=== PATIENT | female | born 1940 | race Caucasian/White ===

== ENCOUNTER → 2016-11-17 | Outpatient (CLI) | payer OTHER ==
--- NOTE | 2016-11-17 08:48 | MA ---
Screening Digital Mammogram With Tomosynthesis Clinical Indications: Routine screening. Technique: Standard digital cephalocaudal and tomosynthesis mediolateral oblique projections are obt ained. The digital images were processed by the [employer] computer aided detection system. Comparison: September 2014, July 2012 and September 2010 Breast density: B; There are scattered fibroglandular densities. There is atherosclerotic vascular ca lcification. Findings: CAD was reviewed. No suspicious findings are identified. Impression: Negative mammogram. BI-RADS 1. Recommendation: Routine screening is recommended in one year. [facility]–1983 will send a result letter to the patient. Negative mammography should not preclude additional workup of a clinically suspicious finding. The patient's information is entered into a reminder system with a target due date for her next mammo gram.
== END ==
LOC: FIMAGING 08:07
PROVIDERS: ATTEND Registered Nurse
DX: Z12.31 Encounter for screening mammogram for malignant neoplasm of breast (principal)
CPT/HCPCS: G0202

== ENCOUNTER → 2017-01-07 | Outpatient (CLI) | payer OTHER | LOC: FIMAGING 09:36 | PROVIDERS: ATTEND Registered Nurse | DX: M81.0 Age-related osteoporosis without current pathological fracture (principal) ==

== ENCOUNTER → 2018-04-07 | Outpatient (CLI) | payer OTHER, BC | LOC: CIMAGING 08:12 | DX: K76.89 Other specified diseases of liver (principal) | CPT/HCPCS: 76700-PO ==

== ENCOUNTER 2018-11-05 06:09 | Emergency (ER) | payer OTHER, BC ==
[2018-11-05] MEDS ORDERED: KETOROLAC 15 MG/1 ML SDV IVP ONE (06:28)
[2018-11-05] MEDS ORDERED: NS 1,000 ML IV ONE (06:28)
--- NOTE | 2018-11-05 06:31 | EDPHY ---
H & P Stated Complaint: headache chills f - Personal History Current Tetanus/Diphtheria Vaccine: Yes Current Tetanus Diphtheria and Acellular Pertussis (TDAP): Yes - Medical/Surgical History Hx Asthma: No Hx Chronic Respiratory Disease: No Hx Diabetes: No Hx Cardiac Disease: No Hx Renal Disease: No Hx Cirrhosis: No Hx Alcoholism: No Hx HIV/AIDS: No Hx Splenectomy or Spleen Trauma: No Other PMH: HTN, - Social History Smoking Status: Never smoked Time Seen by Provider: 11/05/18 06:19 HPI/ROS: Chief Complaint: Headache, chills HPI: Healthy 78-year-old woman presenting complaining of a headache which began about 12 hr ago after she woke up from a nap. Patient states that it was gradual in onset. At worst about a 4/10. She has been taking Tylenol every 4 hr with some relief but does not go away. Has had some chills and low-grade fever at home. No nausea or vomiting. No cough. No chest pain or shortness of breath. No history of chronic headaches in the past. Is not the worst headache of her life. She last took Tylenol for about 3:00 a.m.. No vision changes. ROS: 10 systems were reviewed and were negative except those elements noted in the HPI. PMH: Osteoarthritis Social History: No smoking, occasional alcohol, no recreational drug use Family History: non-contributory Physical Exam: Gen: Awake, Alert, No Distress HEENT: No temporal artery tenderness Nose: no rhinorrhea Eyes: PERRLA, EOMI Mouth: Moist mucosa Neck: Supple, no JVD, no meningismus Chest: nontender, lungs clear to auscultation Heart: S1, S2 normal, no murmur Abd: Soft, non-tender, no guarding Back: no CVA tenderness, no midline tenderness Ext: no edema, non-tender Skin: no rash Neuro: CN II-XII intact, Sensation grossly intact, Strength 5/5 in bilateral upper and lower extremities (Kaveh Gayle) Constitutional: Initial Vital Signs Temperature (C) 37 C 11/05/18 06:12 Heart Rate 111 H 11/05/18 06:12 Respiratory Rate 18 11/05/18 06:12 Blood Pressure 151/82 H 11/05/18 06:12 O2 Sat (%) 95 11/05/18 06:12 O2 Delivery Mode Room Air Allergies/Adverse Reactions: naproxen Allergy (Verified 02/04/16 10:53) Home Medications: Medication Instructions Recorded Celebrex 02/04/16 Lisinopril-Hctz 10-12.5 mg Tab 02/04/16 Vitamin D 02/04/16 Aspirin 81mg (*) 11/05/18 Medical Decision Making ED Course/Re-evaluation: Patient signed out to Dr. Montero pending laboratory evaluations and reassessment after therapies. Patient does not have any findings suggestive acute intracranial bleed, acute ophthalmologic issue, temporal arteritis, meningitis, or acute neurologic infectious or ophthalmological emergency at this time. ( Kaveh Gayle) Other Provider: Care assumed at 6:[address] Gayle with plan for symptomatic treatment. CBC chemistry and influenza. Treatment with nonsteroidal. 733: results reviewed. Patient is ambulatory and does have improvement of her symptoms, her headache is less than 3/10. She does not have meningeal signs and has full range of motion of her neck. She has a couple of red spots in her cheeks but no petechiae or purpura or other rash. Temperature remains normal and WBC is normal. Flu test is negative. Clinical impression is more likely to be viral syndrome causing her headache. Tonometry with [employer] Mark-Pen is 16 in the left eye and 17 in the right eye. I think it is unlikely that she has meningitis or intracranial bleed or mass, encephalitis, glaucoma causing her symptoms. Patient states she would like to go home and be treated symptomatically which I think is reasonable. (Lon Montero) - Data Points Laboratory Results: Laboratory Results 11/05/18 06:34 11/05/18 06:27 11/05/18 11/05/18 11/05/18 06:45 06:34 06:27 WBC 9.13 10^3/uL 10^3/uL (3.80-9.50) RBC 4.69 10^6/uL 10^6/uL (4.18-5.33) Hgb 14.1 g/dL g/dL (12.6-16.3) Hct 40.9 % % (38.0-47.0) MCV 87.2 fL fL (81.5-99.8) MCH 30.1 pg pg (27.9-34.1) MCHC 34.5 g/dL g/dL (32.4-36.7) RDW 12.3 % % (11.5-15.2) Plt Count 281 10^3/uL 10^3/uL (150-400) MPV 9.1 fL fL (8.7-11.7) Neut % (Auto) 68.4 % % (39.3-74.2) Lymph % (Auto) 23.5 % % (15.0-45.0) Trigg % (Auto) 6.6 % % (4.5-13.0) Eos % (Auto) 0.8 % % (0.6-7.6) Baso % (Auto) 0.4 % % (0.3-1.7) Nucleat RBC Rel Count 0.0 % % (0.0-0.2) Absolute Neuts (auto) 6.24 10^3/uL 10^3/uL (1.70-6.50) Absolute Lymphs (auto) 2.15 10^3/uL 10^3/uL (1.00-3.00) Absolute Monos (auto) 0.60 10^3/uL 10^3/uL (0.30-0.80) Absolute Eos (auto) 0.07 10^3/uL 10^3/uL (0.03-0.40) Absolute Basos (auto) 0.04 10^3/uL 10^3/uL (0.02-0.10) Absolute Nucleated RBC 0.00 10^3/uL 10^3/uL (0-0.01) Immature Gran % 0.3 % % (0.0-1.1) Immature Gran # 0.03 10^3/uL 10^3/uL (0.00-0.10) Sodium 138 mEq/L mEq/L (135-145) Potassium 3.8 mEq/L mEq/L (3.5-5.2) Chloride 103 mEq/L mEq/L (97-110) Carbon Dioxide 26 mEq/l mEq/l (22-31) Anion Gap 9 mEq/L mEq/L (6-14) BUN 21 mg/dL mg/dL (7-23) Creatinine 0.8 mg/dL mg/dL (0.6-1.0) Estimated GFR > 60 Glucose 110 mg/dL H mg/dL (70-100) Calcium 10.0 mg/dL mg/dL (8.5-10.4) Nasal Influenza A PCR NEGATIVE FOR FLU A (NEGATIVE) Nasal Influenza B PCR NEGATIVE FOR FLU B (NEGATIVE) Medications Given: Discontinued Medications Sodium Chloride (Ns) 1,000 mls @ 0 mls/hr IV ONCE ONE; Wide Open PRN Reason: Protocol Stop: 11/05/18 06:29 Last Admin: 11/05/18 06:42 Dose: 1,000 mls Ketorolac Tromethamine (Toradol) 15 mg IVP EDNOW ONE Stop: 11/05/18 06:29 Last Admin: 11/05/18 06:42 Dose: 15 mg Departure - Departure Disposition: Home, Routine, Self-Care Clinical Impression: Headache Condition: Good Instructions: Acute Headache (ED) Additional Instructions: Drink plenty of fluids. You can add oral ibuprofen 600 mg every 8 hr for the next 3 days as needed for headache. Please return for worsening symptoms including headache or stiff neck, vomiting , high fever, eye pain, or any change in your vision. Referrals: Ehsan Bennett MD [Medical Doctor] - 2-3 days, call for appt.
[2018-11-05 06:55] LABS: PLATELET COUNT 281 10^3/uL (150-400)
[2018-11-05 07:53] VITALS: BP 147/77
== END 2018-11-05 07:52 | disposition home or self-care (01) ==
DX: R51 Headache (principal)
CPT/HCPCS: 96361; 96374; 99284; J1885